=== PATIENT | female | born 1945 | race Caucasian/White ===

== ENCOUNTER 2021-10-15 12:27 | Emergency (ER) | payer MEDICARE, SELFPAY ==
[2021-10-15 12:50] VITALS: BP 150/61; PULSE 63; RESP 16; TEMP 35.8; O2SAT 96
--- NOTE | 2021-10-15 13:17 | ED.URI ---
HPI - URI/Sore Throat General Chief Complaint: Upper Respiratory Infection Stated Complaint: sinus drainage,hoarse Time Seen by Provider: 10/15/21 13:10 Source: patient and RN notes reviewed Mode of arrival: ambulatory Limitations: no limitations History of Present Illness HPI Narrative: Ranjana is a 76-year-old female patient ambulated into the [facility] with complaint of sore throat sinus drainage and being hoarse since 10/13/2021. Patient states she does have a headache only with coughing. Patient has been using salt water gargles and cough drops with no improvement patient denies any other symptoms MD elicited complaint: cough, nasal congestion and other (hoarse voice) Related Data Home Medications Medication Instructions Recorded Confirmed lisinopril 5 mg DAILY 10/15/21 10/15/21 potassium chloride 20 meq PO DAILY 10/15/21 10/15/21 simvastatin 20 mg DAILY 10/15/21 10/15/21 triamterene-hydrochlorothiazid 1 cap DAILY 10/15/21 10/15/21 Allergies Allergy/AdvReac Type Severity Reaction Status Date / Time No Known Allergies Allergy Verified 10/15/21 13:18 Review of Systems Review of Systems: CONSTITUTIONAL: Denies body aches, fever, chills, or sweats. EYES: Denies visual changes, redness, or discharge. ENT: Denies rhinorrhea,+ congestion, sore throat, or otalgia. CARDIOVASCULAR: Denies chest pain, palpitations, or edema.+ hoarseness RESPIRATORY: +cough denies dyspnea. GASTROINTESTINAL: Denies abdominal pain, nausea, vomiting, or diarrhea. GENITOURINARY: Denies dysuria or hematuria. SKIN: Denies rash, itching, or wounds. MUSCULOSKELETAL: Denies back pain, joint pain, or myalgia. NEUROLOGIC: Denies headache, numbness, tingling, or weakness. PSYCH: Denies depression or anxiety. All systems reviewed & are unremarkable except as noted in HPI and below PMFSH Comments At time of signature, I have reviewed and agree with nursing past medical, surgical, social and family history unless otherwise noted. Please see nursing chart for further information. There is no relevant family history pertinent to the presenting complaint Exam Narrative: GENERAL: Well-appearing, well-nourished, and in no acute distress. HEAD: Normocephalic, atraumatic. EYES: EOMI. No redness or drainage. Conjunctivae normal. ENT: Mucous membranes pink and moist. Nasal membranes erythematous with clear No rhinorrhea. Bilateral tympanic membranes are dull with minimal fluid. No erythema . Posterior pharynx is erythematous with mild edema and moderate amount of postnasal drainage . Uvula midline. NECK: Normal AROM. Supple. No lymphadenopathy. CHEST: No respiratory distress. Clear to auscultation. MUSCULOSKELETAL: No bony tenderness. EXTREMITIES: Normal range of motion. No edema. SKIN: Warm, dry, no rash. Capillary refill normal. Normal skin turgor. NEURO: No focal deficits. Alert and oriented x3. Gait steady. PSYCH: Normal affect. No signs of depression or anxiety. Course Vital Signs Vital signs: Vital Signs Temperature 35.8 C L 10/15/21 12:50 Pulse Rate 63 10/15/21 12:50 Respiratory Rate 16 10/15/21 12:50 Blood Pressure 150/61 H 10/15/21 12:50 Pulse Oximetry 96 10/15/21 12:50 Temperature 35.8 C L 10/15/21 12:50 Pulse Rate 63 10/15/21 12:50 Respiratory Rate 16 10/15/21 12:50 Blood Pressure 150/61 H 10/15/21 12:50 Pulse Oximetry 96 10/15/21 12:50 Reviewed. Pt has been instructed to follow up with her PCP regarding her elevated blood pressure today. MDM - URI/Sore Throat MDM Narrative Medical decision making narrative: Patient has an upper respiratory infection. She will be treated with prednisone. Patient will continue her cough drops and salt water gargles. Patient to follow-up with her primary care physician in 3 to 5 days for continued symptoms or sooner for worsening of symptoms. Patient to go to the ER immediately for severe shortness of breath or inability to swallow saliva or flu
== END 2021-10-15 13:30 | disposition home or self-care (01) ==
PROVIDERS: Emergency Provider Nurse Practitioner Family; PCP Family Medicine
DX: J06.9 Acute upper respiratory infection, unspecified (principal); E78.00 Pure hypercholesterolemia, unspecified; I10 Essential (primary) hypertension
CPT/HCPCS: 99203; G0463